=== PATIENT | female | born 1985 | race Caucasian/White ===

== ENCOUNTER 2019-08-30 13:22 | Emergency (ER) | payer BC ==
[~2019-08-30] VITALS: Ht 167.7 cm; Wt 65.2 kg
--- NOTE | 2019-08-30 13:48 | ED General ---
General Stated Complaint: BLURRY VISION;HEART PALPITATIONS Source of Information: Patient, Other Exam Limitations: No Limitations History of Present Illness Date Seen by Provider: Aug 30, 2019 Time Seen by Provider: 13:31 Initial Comments Patient resents to ER by private conveyance with chief complaint of having a mild headache earlier this morning his some blurry vision feeling like that was black and white static on an old TV set. This lasted about 5 minutes. She's had these episodically about once or twice a week for the past several months. She has a history of migraines every month related to hormones. She is not been to neurologist. She wears glasses and her last virtualization architect appointment was a year ago. She also is feeling some palpitations that lasted for a few seconds and went away. She just got out of [facility] 2 days ago for a cardiac ablation secondary to Tzpqy-Qvavnrksw-Mlbcb. She follows with Dr. Bar and does not have any other significant medical history. She does not smoke or drink. She is not been doing anything strenuous lately. She is not on control. She does not take any medications. No recent head trauma. Allergies and Home Medications Allergies Coded Allergies: No Known Drug Allergies (Unverified , 08/30/19) Patient Home Medication List Home Medication List Reviewed: Yes Review of Systems Review of Systems Constitutional: No chills, No fever, No malaise EENTM: see HPI, blurred vision; No ear discharge, No ear pain Respiratory: No cough, No short of breath Cardiovascular: No chest pain, No edema Gastrointestinal: No abdominal pain, No constipation, No nausea Genitourinary: No discharge, No dysuria Musculoskeletal: No back pain, No joint pain All Other Systems Reviewed Negative Unless Noted: Yes Past [id number]-Exzapk Hx Patient Social History Alcohol Use: Denies Use Recreational Drug Use: No Smoking Status: Never a Smoker Physical Exam Vital Signs Vital Signs - First Documented 08/30/19 13:25 Temp 36.9 Pulse 99 Resp 15 B/P (MAP) 120/72 (88) Pulse Ox 100 O2 Delivery Room Air Capillary Refill : Height, Weight, BMI Height: '" Weight: lbs. oz. kg; BMI Method: General Appearance: No Apparent Distress, WD/WN Eyes: Bilateral Eye Normal Inspection, Bilateral Eye PERRL, Bilateral Eye EOMI HEENT: PERRL/EOMI, TMs Normal, Normal ENT Inspection, Pharynx Normal, Moist Mucous Membranes, Other (normal funduscopic exam) Neck: Full Range of Motion, Normal Inspection, Non Tender Respiratory: Lungs Clear, Normal Breath Sounds, No Accessory Muscle Use, No Respiratory Distress Cardiovascular: Regular Rate, Rhythm, No Edema, No JVD, Normal Peripheral Pulses, Systolic Murmur (2/6) Extremity: Normal Capillary Refill, Normal Inspection, Normal Range of Motion Neurologic/Psychiatric: Alert, Oriented x3, No Motor/Sensory Deficits, Normal Mood/Affect, nurse emergency room II-XII Norm as Tested Skin: Normal Color, Warm/Dry Progress/Results/Core Measures Suspected Sepsis SIRS Temperature: Pulse: Respiratory Rate: Laboratory Tests 08/30/19 13:50: White Blood Count 11.5H Blood Pressure / Mean: Laboratory Tests 08/30/19 13:50: Creatinine 0.94, Platelet Count 248, Total Bilirubin 0.3 Results/Orders Lab Results Laboratory Tests Test 08/30/19 13:25 08/30/19 13:50 Range/Units Urine Color YELLOW Urine Clarity CLEAR Urine pH 6.0 5-9 Urine Specific [place] 1.010 L 1.016-1.022 Urine Protein NEGATIVE NEGATIVE Urine Glucose (UA) NEGATIVE NEGATIVE Urine Ketones NEGATIVE NEGATIVE Urine Nitrite NEGATIVE NEGATIVE Urine Bilirubin NEGATIVE NEGATIVE Urine Urobilinogen 0.2 < = 1.0 MG/DL Urine Leukocyte Esterase NEGATIVE NEGATIVE Urine RBC (Auto) NEGATIVE NEGATIVE Urine RBC NONE /HPF Urine WBC NONE /HPF Urine Squamous Epithelial Cells 2-5 /HPF Urine Crystals NONE /LPF Urine Bacteria NEGATIVE /HPF Urine Casts NONE /LPF Urine Mucus NEGATIVE /LPF Urine Culture Indicated NO White Blood Count 11.5 H 4.3-11.0 10^3/uL Red Blood Count 4.57 4.35-5.85 10^6/uL Hemoglobin 12.8 11.5-16.0 G/DL Hematocrit 39 35-52 % Mean Corpuscular Volume 85 80-99 FL Mean Corpuscular Hemoglobin 28 25-34 PG Mean Corpuscular Hemoglobin Concent 33 32-36 G/DL Red Cell Distribution Width 13.2 10.0-14.5 % Platelet Count 248 130-400 10^3/uL Mean Platelet Volume 9.8 7.4-10.4 FL Neutrophils (%) (Auto) 74 42-75 % Lymphocytes (%) (Auto) 16 12-44 % Monocytes (%) (Auto) 9 0-12 % Eosinophils (%) (Auto) 1 0-10 % Basophils (%) (Auto) 0 0-10 % Neutrophils # (Auto) 8.5 H 1.8-7.8 X 10^3 Lymphocytes # (Auto) 1.9 1.0-4.0 X 10^3 Monocytes # (Auto) 1.1 H 0.0-1.0 X 10^3 Eosinophils # (Auto) 0.1 0.0-0.3 10^3/uL Basophils # (Auto) 0.1 0.0-0.1 10^3/uL Erythrocyte Sedimentation Rate 38 H 0-20 MM/HR Sodium Level 139 135-145 MMOL/L Potassium Level 3.5 L 3.6-5.0 MMOL/L Chloride Level 101 98-107 MMOL/L Carbon Dioxide Level 25 21-32 MMOL/L Anion Gap 13 5-14 MMOL/L Blood Urea Nitrogen 9 7-18 MG/DL Creatinine 0.94 0.60-1.30 MG/DL Estimat Glomerular Filtration Rate > 60 BUN/Creatinine Ratio 10 Glucose Level 125 H 70-105 MG/DL Calcium Level 9.7 8.5-10.1 MG/DL Corrected Calcium 9.5 8.5-10.1 MG/DL Total Bilirubin 0.3 0.1-1.0 MG/DL Aspartate Amino Transf (AST/SGOT) 26 5-34 U/L Alanine Aminotransferase (ALT/SGPT) 27 0-55 U/L Alkaline Phosphatase 66 40-136 U/L C-Reactive Protein 5.63 H <0.50 MG/DL Total Protein 7.9 6.4-8.2 GM/DL Albumin 4.3 3.2-4.5 GM/DL My Orders Orders - JOVANA CAUSEY Cbc With Automated Diff (08/30/19 13:43) Comprehensive Metabolic Panel (08/30/19 13:43) Ua Culture If Indicated (08/30/19 13:43) Urine Bedside (08/30/19 13:43) Erythrocyte Sedimentation Rate (08/30/19 13:49) Crp Fs (08/30/19 13:49) Ekg Tracing (08/30/19 13:53) Continuous Ekg Monitoring (12/8/19 13:53) Vital Signs/I&O 08/30/19 08/30/19 13:25 14:56 Temp 36.9 36.9 Pulse 99 95 Resp 15 15 B/P (MAP) 120/72 (88) 102/60 (88) Pulse Ox 100 100 O2 Delivery Room Air Capillary Refill : Progress Note #1: Time: 14:00 Progress Note Suspect ocular migraine versus? ESR and CRP looking for inflammatory/autoimmune syndromes. We'll check electrolytes to make sure there is nothing that would contribute to any dysrhythmias and keep her on a monitor. Initial EKG unremarkable. Progress Note #2: Time: 14:37 Progress Note Labs and urine unremarkable. Marginal ESR and CRP that did not cross the threshold for concern today. ECG Initial ECG Impression Date: Aug 30, 2019 Initial ECG Impression Time: 13:31 Initial ECG Rate: 90 Initial ECG Rhythm: Normal Sinus Initial ECG Intervals: Normal Initial ECG Impression: Normal Comment Normal sinus rhythm without ST elevation or depression. Consults Consults : Consulting Physician: AIDA MORFIN MD Consults Notes Discussed the case with Dr. Morfin, cardiology and he does also be any connection between the recent ablation and her symptoms. He suspects that she's having complex migraine because the ablation for Ynrsi-Guqkuanpp-Lhorj white accesses a venous side so embolism and arterial dissection are not possibilities. Departure Impression Primary Impression: Ophthalmic migraine Disposition: 01 HOME, SELF-CARE Condition: Improved Departure-Patient Inst. Decision time for Depature: 14:38 Referrals: MORAIMA BAR MD (PCP) Primary Care Physician Patient Instructions: Migraine Headache (DC), Palpitations (DC) Add. Discharge Instructions: I suspect that you're visual disturbances are related to the headaches and are therefore benign however if the pattern worsens then follow-up with primary care to pursue neurologic workup. If your palpitations become persistent or are accompanied with symptoms such as chest pain, fatigue, shortness of breath then you should return to the ER. JOVANA CAUSEY Aug 30, 2019 13:48 POS
[2019-08-30 14:11] LABS: BASOPHILS # (AUTO) 0.1 10^3/uL (0.0-0.1); BASOPHILS % (AUTO) 0 % (0-10); EOSINOPHILS # (AUTO) 0.1 10^3/uL (0.0-0.3); EOSINOPHILS % (AUTO) 1 % (0-10); HEMATOCRIT 39 % (35-52); HEMOGLOBIN 12.8 G/DL (11.5-16.0); LYMPHOCYTES # (AUTO) 1.9 X 10^3 (1.0-4.0); LYMPHOCYTES % (AUTO) 16 % (12-44); MEAN CORPUSCULAR HEMOGLOBIN 28 PG (25-34); MEAN CORPUSCULAR HGB CONC 33 G/DL (32-36); MEAN CORPUSCULAR VOLUME 85 FL (80-99); MEAN PLATELET VOLUME 9.8 FL (7.4-10.4); MONOCYTES # (AUTO) 1.1 X 10^3 (0.0-1.0); MONOCYTES % (AUTO) 9 % (0-12); NEUTROPHILS # (AUTO) 8.5 X 10^3 (1.8-7.8); NEUTROPHILS % (AUTO) 74 % (42-75); PLATELET COUNT 248 10^3/uL (130-400); RED CELL DISTRIBUTION WIDTH 13.2 % (10.0-14.5); WHITE BLOOD COUNT 11.5 10^3/uL (4.3-11.0)
[2019-08-30 14:19] LABS: CLARITY,URINE CLEAR; COLOR,URINE YELLOW
[2019-08-30 14:20] LABS: BACTERIA,URINE NEGATIVE /HPF; BILIRUBIN,URINE NEGATIVE (NEGATIVE); GLUCOSE, URINE (UA) NEGATIVE (NEGATIVE); KETONES,URINE NEGATIVE (NEGATIVE); LEUKOCYTE ESTERASE ,URINE NEGATIVE (NEGATIVE); NITRITE,URINE NEGATIVE (NEGATIVE); PROTEIN,URINE NEGATIVE (NEGATIVE)
[2019-08-30 14:25] LABS: ALANINE AMINOTRANSFERASE 27 U/L (0-55); ALBUMIN 4.3 GM/DL (3.2-4.5); ALKALINE PHOSPHATASE 66 U/L (40-136); BILIRUBIN,TOTAL 0.3 MG/DL (0.1-1.0); BUN/CREATININE RATIO 10; CALCIUM 9.7 MG/DL (8.5-10.1); CARBON DIOXIDE 25 MMOL/L (21-32); CHLORIDE 101 MMOL/L (98-107); CREATININE SERUM 0.94 MG/DL (0.60-1.30); GFR ESTIMATED > 60; GLUCOSE 125 MG/DL (70-105); POTASSIUM 3.5 MMOL/L (3.6-5.0); SODIUM 139 MMOL/L (135-145); TOTAL PROTEIN 7.9 GM/DL (6.4-8.2)
[2019-08-30 14:34] LABS: ERYTHROCYTE SEDIMENTATION RATE 38 MM/HR (0-20)
[2019-08-30 14:56] VITALS: BP 102/60
--- OUTSIDE RECORDS SUMMARY | 2019-09-24 20:11 | XMS REPORT | Continuity of Care Document ---
Author Organization Unknown Address Unknown Phone Unavailable Allergies Active Description Code Type Severity Reaction Onset Reported/Identified Relationship to Patient Clinical Status Yes No Known Drug Allergies [id number] Drug Allergy Unknown N/A 08/30/2019 Medications There is no data. Problems Date Dx Coded Attending Type Code Diagnosis Diagnosed By 08/30/2019 MARIUM MENCHACA, JOVANA Hernandez Ot G43.819 OTHER MIGRAINE, INTRACTABLE, WITHOUT STA 08/30/2019 MARIUM MENCHACA, JOVANA Hernandez Ot H53. 8 OTHER VISUAL DISTURBANCES 09/02/2019 MARIUM MENCHACA, JOVANA Hernandez Ot G43.819 OTHER MIGRAINE, INTRACTABLE, WITHOUT STA 09/02/2019 JOVANA CAUSEY MD Ot H53. 8 OTHER VISUAL DISTURBANCES Procedures There is no data. Results Test Result Range CBC w/MANUAL DIFF - 03/20/19 14:40 WHITE BLOOD CELL COUNT 8.6 Thousand/uL 3 .8-10.8 RED BLOOD CELL COUNT 4.76 Million/uL 3.8 0-5.10 HEMOGLOBIN 13.1 g/dL 11.7-15.5 HEMATOCRIT 40.6 % 35.0-45.0 MCV 85.3 fL 80.0-100.0 MCH 27.5 pg 27.0-33.0 MCHC 32.3 g/dL 32.0-36.0 RDW 13.0 % 11.0-15.0 PLATELET COUNT 265 Thousand/uL 140-400 MPV 10.8 fL 7.5-12.5 ABSOLUTE NEUTROPHILS 5788 cells/uL 1500- 7800 ABSOLUTE MONOCYTES 679 cells/uL 200-950 ABSOLUTE EOSINOPHILS 86 cells/uL 15-500 ABSOLUTE BASOPHILS 0 cells/uL 0-200 NEUTROPHILS 67.3 % NRG LYMPHOCYTES 23.8 % NRG MONOCYTES 7.9 % NRG EOSINOPHILS 1.0 % NRG BASOPHILS 0 % NRG ABSOLUTE LYMPHOCYTES 2047 cells/uL 850-3 900 PLATELET ESTIMATION ADEQUATE ADEQUATE TSH - 03/20/19 14:40 TSH 1.98 mIU/L NRG Complete urinalysis with reflex to cultu re - 08/30/19 13:25 Urine color determination YELLOW NRG Urine clarity determination CLEAR NR G Urine pH measurement by test strip 6.0 5-9 Specific gravity of urine by test strip 1.010 1.016-1.022 Urine protein assay by test strip, semi-quantitative NEGATIVE NEGATIVE Urine glucose detection by automated test strip NE GATIVE NEGATIVE Erythrocytes detection in urine sediment by light micr oscopy NEGATIVE NEGATIVE Urine ketones detection by automated test strip NE GATIVE NEGATIVE Urine nitrite detection by test strip NEGATIVE NEGATIVE Urine total bilirubin detection by test strip NEGA TIVE NEGATIVE Urine urobilinogen measurement by automated test strip (mass/volume) 0.2 mg/dL < = 1.0 Urine leukocyte esterase detection by dipstick NEG ATIVE NEGATIVE Automated urine sediment erythrocyte cou nt by microscopy (number/high power field) NONE NRG Automated urine sediment leukocyte count by microscopy (number/high power field) NONE NRG Bacteria detection in urine sediment by light microsco py NEGATIVE NRG Squamous epithelial cells detection in u rine sediment by light microscopy 2-5 NRG Crystals detection in urine sediment by light microsco py NONE NRG Casts detection in urine sediment by light microscopy NONE NRG Mucus detection in urine sediment by light microscopy NEGATIVE NRG Complete urinalysis with reflex to culture NO NRG Comprehensive metabolic panel - 08/30/19 13:50 Serum or plasma sodium measurement (moles/volume) 139 mmol/L 135-145 Serum or plasma potassium measurement (moles/volume) 3.5 mmol/L 3.6-5.0 Serum or plasma chloride measurement (moles/volume) 101 mmol/L 98-107 Carbon dioxide 25 mmol/L 21-32 Serum or plasma anion gap determination (moles/volume) 13 mmol/L 5-14 Serum or plasma urea nitrogen measurement (mass/volume ) 9 mg/dL 7-18 Serum or plasma creatinine measurement (mass/volume) 0.94 mg/dL 0.60-1.30 Serum or plasma urea nitrogen/creatinine mass ratio 10 NRG Serum or plasma creatinine measurement w ith calculation of estimated glomerular filtration rate > NRG Serum or plasma glucose measurement (mass/volume) 125 mg/dL 70-105 Serum or plasma calcium measurement (mass/volume) 9.7 mg/dL 8.5-10.1 Serum or plasma total bilirubin measurement (mass/volu me) 0.3 mg/dL 0.1-1.0 Serum or plasma alkaline phosphatase danielle surement (enzymatic activity/volume) 66 U/L 40-136 Serum or plasma aspartate aminotransfera se measurement (enzymatic activity/volume) 26 U/L 5-34 Serum or plasma alanine aminotransferase measurement (enzymatic activity/volume) 27 U/L 0-55 Serum or plasma protein measurement (mass/volume) 7.9 g/dL 6.4-8.2 Serum or plasma albumin measurement (mass/volume) 4.3 g/dL 3.2-4.5 CALCIUM CORRECTED 9.5 mg/dL 8.5-10.1 CRP FS - 08/30/19 13:50 CRP FS 5.63 mg/dL <0.50 Complete blood count (CBC) with automate d white blood cell (WBC) differential - 08/30/19 13:50 Blood leukocytes automated count (number/volume) 11.5 10*3/uL 4.3-11.0 Blood erythrocytes automated count (number/volume) 4.57 10*6/uL 4.35-5.85 Venous blood hemoglobin measurement (mass/volume) 12.8 g/dL 11.5-16.0 Blood hematocrit (volume fraction) 39 % 35-52 Automated erythrocyte mean corpuscular volume 85 [ foz_us] 80-99 Automated erythrocyte mean corpuscular h emoglobin (mass per erythrocyte) 28 pg 25-34 Automated erythrocyte mean corpuscular h emoglobin concentration measurement (mass/volume) 33 g/dL 32-36 Automated erythrocyte distribution width ratio 13. 2 % 10.0- 14.5 Automated blood platelet count (count/volume) 248 10*3/uL 130-400 Automated blood platelet mean volume measurement 9.8 [foz_us] 7.4-10.4 Automated blood neutrophils/100 leukocytes 74 % 42-75 Automated blood lymphocytes/100 leukocytes 16 % 12-44 Blood monocytes/100 leukocytes 9 % 0-12 Automated blood eosinophils/100 leukocytes 1 % 0-10 Automated blood basophils/100 leukocytes 0 % 0-10 Blood neutrophils automated count (number/volume) 8.5 10*3 1.8-7.8 Blood lymphocytes automated count (number/volume) 1.9 10*3 1.0-4.0 Blood monocytes automated count (number/volume) 1. 1 10*3 0.0-1.0 Automated eosinophil count 0.1 10*3/uL 0 .0-0.3 Automated blood basophil count (count/volume) 0.1 10*3/uL 0.0-0.1 Erythrocyte sedimentation rate by ben gren method - 08/30/19 13:50 Erythrocyte sedimentation rate by westergren method 38 mm 0- 20 Encounters ACCT No. Visit Date/Time Discharge Status Pt. Type Provider Facility Loc./Unit Complaint [id number] 03/20/2019 13:40:00 03/20/2019 23:59: 59 [facility] Outpatient [facility] [id number] 03/20/2019 13:40:00 Document Registration [id number] 08/30/2019 13:24:00 019 14:55:00 DIS Emergency MARIUM MENCHACA, JOVANA Hernandez [facility] ER FS BLURRY VISION;HEART PAL PITATIONS [id number] 08/30/2019 13:49:00 Document Registration
== END 2019-08-30 14:55 | disposition home or self-care (01) ==
LOC: EDUNIT# 13:22 → ER FS 13:24
DX: G43.819 Other migraine, intractable, without status migrainosus (principal)
CPT/HCPCS: 36415; 80053; 81000; 84703; 85025; 85652; 86141; 93005

== ENCOUNTER → 2021-06-23 | Outpatient (CLI) | payer BC | LOC: LABNPT 16:15 | PROVIDERS: ATTEND Family Medicine | DX: L90.0 Lichen sclerosus et atrophicus (principal) | CPT/HCPCS: 87210 ==